=== PATIENT | female | born 1985 | race Caucasian/White ===

== ENCOUNTER 2020-05-09 13:36 | Emergency (ER) | payer SELFPAY ==
[~2020-05-09] VITALS: Wt 88.0 kg
[2020-05-09] MEDS ORDERED: PREDNISONE50 MG PO (15:11)
== END 2020-05-09 15:12 | disposition home or self-care (01) ==
LOC: ED 13:36
DX: T78.49XA Other allergy, initial encounter (principal); L40.9 Psoriasis, unspecified; Z91.011 Allergy to milk products; Z88.1 Allergy status to other antibiotic agents; X58.XXXA Exposure to other specified factors, initial encounter